=== PATIENT | male | born 1950 | race Caucasian/White ===

== ENCOUNTER 2018-09-06 07:11 | Emergency (ER) | payer OTHER ==
--- NOTE | 2018-09-06 07:13 | PDOC ---
History of Present Illness - General Chief Complaint: Injury Stated Complaint: rt shoulder injury Time Seen by Provider: 09/06/18 07:12 - History of Present Illness Initial Comments: 09/06/18 07:33 68yo M hx NIDDM, HL presents to the ED with R shoulder pain after tripping on a mop and landing on his R shoulder at 2pm yesterday. No head strike or LOC. Pt reports his shoulder hurts more in the back and it's much worse when he raises his arm overhead. He took aleve yesterday with moderate relief of the pain. Also reports L buttocks pain after the fall but has been able to walk w/o pain. Denies other injuries. Denies headache, N/V, fevers, chills, cp, sob, abd pain, LE edema or pain. Past History - Past Medical History Allergies/Adverse Reactions: Allergies Allergy/AdvReac Type Severity Reaction Status Date / Time No Known Allergies Allergy Unverified 09/06/18 07:12 Home Medications: Ambulatory Orders Empagliflozin [Jardiance] 10 mg PO DAILY 09/06/18 Insulin Aspart [Novolog] 1 unit SQ PRN PRN 09/06/18 Metformin HCl [Glucophage] 500 mg PO DAILY 09/06/18 Naproxen 500 mg PO BID PRN #14 tablet 09/06/18 Review of Systems - Review of Systems Comments:: 09/06/18 07:37 GENERAL/CONSTITUTIONAL: No fever or chills. No weakness. HEAD, EYES, EARS, NOSE AND THROAT: No change in vision. No ear pain or discharge. No sore throat. GASTROINTESTINAL: No nausea, vomiting, diarrhea or constipation. GENITOURINARY: No dysuria, frequency, or change in urination. CARDIOVASCULAR: No chest pain or shortness of breath. RESPIRATORY: No cough, wheezing, or hemoptysis. MUSCULOSKELETAL: +R shoulder pain, no muscle swelling or pain. No neck or back pain. SKIN: No rash NEUROLOGIC: No headache, vertigo, loss of consciousness, or change in strength/ sensation. ENDOCRINE: No increased thirst. No abnormal weight change. HEMATOLOGIC/LYMPHATIC: No anemia, easy bleeding, or history of blood clots. ALLERGIC/IMMUNOLOGIC: No hives or skin allergy. *Physical Exam - Physical Exam Comments: 09/06/18 07:47 GENERAL: Awake, alert, and fully oriented, in no acute distress HEAD: No signs of trauma EYES: EOMI, sclera anicteric, conjunctiva clear ENT: Nares patent, oropharynx clear without exudates. Moist mucosa LUNGS: Breath sounds equal, clear to auscultation bilaterally. No wheezes, and no crackles HEART: Regular rate and rhythm, normal S1 and S2, no murmurs, rubs or gallops ABDOMEN: Soft, nontender, normoactive bowel sounds. No guarding, no rebound. No masses EXTREMITIES: RUE with mild ttp inferior to coracoid process. Pain with abuduction and overhead movement of arm. Able to touch contralateral shoulder. NOrmal strength and sensation distally. 2+ radial pulse. LLE with FROM, no ttp, normal strength and sensation. NEUROLOGICAL: Normal speech, cranial nerves intact, equal strength and sensation b/l SKIN: +superficial linear abrasion over R scapula. No bruising or abrasions noted to LLE ED Treatment Course - RADIOLOGY Radiology Studies Ordered: Category Date Time Status SHOULDER-RIGHT [RAD] Stat Radiology 09/06/18 07:12 Ordered Medical Decision Making - Medical Decision Making 09/06/18 07:40 68yo M presents to the ED with R shoulder pain after falling onto shoulder yesterday. Vitals wnl. Exam with NVI RUE but pain with abduction and overhead movements c/f likely rotator cuff injury. No focal bony ttp but will obtain shoulder film to r/o bony injury. L hip with no bruising or ttp, and pt ambulating w/o pain, no need for imaging at this time. Will treat pain with naproxen and reassess. 09/06/18 08:03 XR on my read with no bony injury Pt feels better, will f/u with Dr Ham Will call pt if radiologist read is different I discussed the physical exam findings, ancillary test results and final diagnoses with the patient. I answered all of the patient's questions. The patient was satisfied with the care received and felt comfortable with the discharge plan and treatment plan. The patient will call their primary care physician within 24 hours to arrange follow-up and will return to the Emergency Department with any new, persistent or worsening symptoms. 09/06/18 11:54 XR neg Called pt to notify him *DC/Admit/Observation/Transfer Diagnosis at time of Disposition: Fall, Hip pain, left, Shoulder pain - Discharge Dispostion Disposition: HOME Condition at time of disposition: Stable Decision to Admit order: No - Prescriptions Prescriptions: Naproxen 500 mg PO BID PRN #14 tablet PRN Reason: Pain - Referrals Referrals: Daniele Ham MD [Staff Physician] - - Patient Instructions Printed Discharge Instructions: DI for Shoulder Pain Additional Instructions: Follow up with Dr. Ham within 1 week for your shoulder pain. Take naproxen twice a day as needed for pain. As discussed, do not take aleve, motrin, ibuprofen, advil or any other NSAID while you are taking naproxen You may take tylenol if the naproxen is not controlling your pain Return to the emergency department if you have any new, worsening, or concerning symptoms. - Post Discharge Activity - Attestations Physician Attestion: 09/06/18 08:05 I, Dr. Jay Godwin MD, attest that this document has been prepared under my direction and personally reviewed by me in its entirety. I further attest, that it accurately reflects all work, treatment, procedures and medical decision -making performed by me.
[2018-09-06 07:24] VITALS: BP 149/97; PULSE 86; TEMP 97.6; BMI 27.6
[2018-09-06] MEDS ORDERED: NAPROXEN 500 MG TABLET (FP) PO ONE (07:56)
[2018-09-06] MEDS ORDERED: NAPROXEN 500 MG TABLET (FP) ONE (07:58)
== END 2018-09-06 08:06 | disposition home or self-care (01) ==
LOC: FER 07:11
DX: M25.511 Pain in right shoulder (principal); M25.552 Pain in left hip; E11.9 Type 2 diabetes mellitus without complications; E78.5 Hyperlipidemia, unspecified; Z79.4 Long term (current) use of insulin
CPT/HCPCS: 73030-TC-RT-FY; 99281-25

== ENCOUNTER 2024-03-03 21:47 | Emergency (ER) | payer OTHER ==
[2024-03-03 22:19] VITALS: BP 117/74; PULSE 92; RESP 16; TEMP 97.6; BMI 27.2
== END 2024-03-03 22:19 | disposition home or self-care (01) ==
LOC: FER 21:47
DX: E16.2 Hypoglycemia, unspecified (principal)
CPT/HCPCS: 82962; 99282-25

== ENCOUNTER 2024-03-20 19:10 | Emergency (ER) | payer OTHER ==
[2024-03-20 19:28] VITALS: BP 156/79; PULSE 82; RESP 18; TEMP 97.5; BMI 27.1
[2024-03-20] MEDS ORDERED: FAMOTIDINE 20 MG/50 ML IVPB 20 MG/50 ML MG IVPB ONE (20:19)
[2024-03-20] MEDS ORDERED: LORATADINE 10 MG TABLET ONE (20:19)
[2024-03-20] MEDS ORDERED: DEXAMETHASONE SOD PHOSPHATE 10 MG/1 ML VIAL ONE (20:19)
[2024-03-20] MEDS: DEXAMETHASONE SOD PHOSPHATE 10 MG/1 ML VIAL IVPUSH ONE (20:35)
[2024-03-20] MEDS: LORATADINE 10 MG TABLET PO ONE (20:35)
[2024-03-20] MEDS: FAMOTIDINE 20 MG/50 ML IVPB 20 MG/50 ML MG IVPB ONE (20:47)
[2024-03-20] MEDS ORDERED: AMOX TR/POT CLAV 875MG/125MG TABLETS (FP) ONE (22:19)
[2024-03-20] MEDS: AMOX TR/POT CLAV 875MG/125MG TABLETS (FP) PO ONE (22:22)
== END 2024-03-20 22:31 | disposition home or self-care (01) ==
LOC: JER 19:10
PROC: 3E033GC Introduction of Other Therapeutic Substance into Peripheral Vein, Percutaneous Approach (ICD-10-PCS; principal; 2024-03-20)
PROC: 3E033GC Introduction of Other Therapeutic Substance into Peripheral Vein, Percutaneous Approach (ICD-10-PCS; 2024-03-20)
PROC: 3E033GC Introduction of Other Therapeutic Substance into Peripheral Vein, Percutaneous Approach (ICD-10-PCS; 2024-03-20)
DX: M79.89 Other specified soft tissue disorders (principal); T63.441A Toxic effect of venom of bees, accidental (unintentional), initial encounter
CPT/HCPCS: 93005; 93010; 99284-25; J1100

== ENCOUNTER 2024-03-21 22:50 | Emergency (ER) | payer OTHER ==
[2024-03-21 22:58] VITALS: BP 161/73; PULSE 88; RESP 18; TEMP 98; BMI 27.1
[2024-03-21] MEDS ORDERED: ACETAMINOPHEN INJECTION 100 ML ONE (23:55)
[2024-03-21] MEDS ORDERED: DALBAVANCIN HCL 500 MG VIAL (RESTRICTED TO ID ONLY) IVPB ONE (23:55)
[2024-03-22] MEDS: ACETAMINOPHEN 1000 MG/100 ML BAG IVPB ONE (00:15)
[2024-03-22] MEDS: DALBAVANCIN HCL 1,500 MG in DEXTROSE 5%-WATER - 500 ML IVPB ONE (00:15)
[2024-03-22 00:36] LABS: BASO % 0.4 % (0-2.0); EOS % 2.4 % (0-4.5); HEMATOCRIT 42.3 % (35.4-49); HEMOGLOBIN 14.4 GM/dL (11.7-16.9); LYMPH % 15.9 % (8-40); MCH 30.7 pg (25.7-33.7); MCHC 34.2 g/dl (32.0-35.9); MEAN CELL VOLUME 89.8 fl (80-96); NEUT % 73.3 % (42.8-82.8); PLATELET COUNT 309 10^3/uL (134-434); RBC 4.71 M/mm3 (4.00-5.60); RDW 13.9 % (11.9-15.9); WHITE BLOOD COUNT 8.1 K/mm3 (4.0-10.0)
[2024-03-22 00:46] LABS: CHLORIDE 104 mmol/L (98-107); POTASSIUM 4.5 mmol/L (3.5-5.1); SODIUM 137 mmol/L (136-145)
[2024-03-22 00:47] LABS: CALCIUM 9.1 mg/dL (8.5-10.1)
[2024-03-22 00:48] LABS: ALBUMIN 3.8 g/dl (3.4-5.0); ANION GAP 10 mmol/L (4-13); BLOOD UREA NITROGEN 43.7 mg/dL (7-18); CO2 23 mmol/L (21-32)
[2024-03-22 00:51] LABS: CREATININE 1.3 mg/dL (0.55-1.3); SGOT/AST 19 U/L (15-37); SGPT/ALT 36 U/L (13-61)
[2024-03-22 00:53] LABS: BILIRUBIN,TOTAL 0.9 mg/dL (0.2-1); TOT PROT 6.6 g/dl (6.4-8.2)
[2024-03-22 00:55] LABS: ALK PHOS 60 U/L (45-117)
[2024-03-22] MEDS: SODIUM CHLORIDE 0.9% 500 ML INFUS.BAG IV ONE (01:02)
[2024-03-22 01:03] LABS: GLUCOSE,RANDOM 414 mg/dL (74-106)
[2024-03-22 01:43] LABS: ERYTHROCYTE SEDIMENTATION RATE 8 mm/hr (0-20)
[2024-03-22] MEDS ORDERED: INSULIN (NOVOLOG MIX 70/30) 100 UNITS/ML MDV SQ ONE (01:43)
[2024-03-22] MEDS: INSULIN (NOVOLOG MIX 70/30) 100 UNITS/ML MDV SQ ONE (01:48)
== END 2024-03-22 02:40 | disposition home or self-care (01) ==
LOC: JER 22:50
PROC: 3E03329 Introduction of Other Anti-infective into Peripheral Vein, Percutaneous Approach (ICD-10-PCS; principal; 2024-03-22)
PROC: 3E033NZ Introduction of Analgesics, Hypnotics, Sedatives into Peripheral Vein, Percutaneous Approach (ICD-10-PCS; 2024-03-22)
PROC: 3E013VG Introduction of Insulin into Subcutaneous Tissue, Percutaneous Approach (ICD-10-PCS; 2024-03-22)
DX: L03.113 Cellulitis of right upper limb (principal); T63.441D Toxic effect of venom of bees, accidental (unintentional), subsequent encounter; I89.1 Lymphangitis; E11.9 Type 2 diabetes mellitus without complications
CPT/HCPCS: 36415; 80053; 85025; 85651; 86140; 99284-25; J0131; J0875